=== PATIENT | female | born 1950 | race Caucasian/White ===

== ENCOUNTER 2017-07-28 11:27 | Day surgery (SDC) | payer MEDICARE, MEDICAID ==
[~2017-07-28] VITALS: Ht 162.6 cm; Wt 100.0 kg
[~2017-07-28 11:27] MED LIST: ATOR40TA PO; BECL8.7A7 INH; CHOL10002 PO; CITA20TA11 PO; GABA-341 PO; HUM7525 SQ; INSU100I29 SQ; LIRA0.6P SQ; LISI-600 PO; PHEN-716 PO
[2017-07-28 12:07] VITALS: BP 125/80
[2017-07-28] MEDS ORDERED: MIDAZolam 5mg/ml 2ml vial ONE (12:24)
[2017-07-28] MEDS ORDERED: fentaNYL/PF 50MCG/1 ML 2ML syringe ONE (12:24)
[2017-07-28] MEDS ORDERED: LEVO100T PO (12:40)
[2017-07-28] MEDS ORDERED: PANT40SU2 PO (12:41)
[2017-07-28] MEDS ORDERED: ROSI2TAB (12:42)
[2017-07-28] MEDS ORDERED: NITR50CA PO (12:44)
[2017-07-28] MEDS ORDERED: LIDOcaine Viscous 15ml cup ONE (13:03)
[2017-07-28 13:38] VITALS: BP 135/80
[2017-07-28 13:48] VITALS: BP 129/63
[2017-07-28 13:58] VITALS: BP 130/68
[2017-07-28 14:08] VITALS: BP 129/68
== END 2017-07-28 14:20 | disposition home or self-care (01) ==
LOC: GI LAB 11:27
PROVIDERS: ATTEND Internal Medicine Gastroenterology
DX: K92.1 Melena (principal); R12 Heartburn; K21.9 Gastro-esophageal reflux disease without esophagitis; Z79.899 Other long term (current) drug therapy; Z90.710 Acquired absence of both cervix and uterus; I10 Essential (primary) hypertension; E11.9 Type 2 diabetes mellitus without complications; Z79.4 Long term (current) use of insulin; Z88.8 Allergy status to other drugs, medicaments and biological substances; Z98.890 Other specified postprocedural states; E78.00 Pure hypercholesterolemia, unspecified
CPT/HCPCS: 43235; 45378; 82948; J2250; J3010; J7030; A4620; G0500

== ENCOUNTER 2017-08-13 17:50 | Emergency (ER) | payer MEDICARE, MEDICAID ==
[~2017-08-13] VITALS: Ht 162.6 cm; Wt 96.5 kg
[~2017-08-13 17:50] MED LIST changes: -HUM7525 SQ; +LEVO100T PO; +NITR50CA PO; +PANT40SU2 PO; -PHEN-716 PO; +ROSI2TAB
[2017-08-13 18:06] VITALS: BP 156/88
[2017-08-13 19:10] LABS: COLOR,URINE YELLOW (Yellow); GLUCOSE, URINE >=1000 mg/dl (Neg); KETONES,URINE NEGATIVE (Neg); LEUKOCYTE ESTERASE ,URINE NEGATIVE (Neg); NITRITES, URINE NEGATIVE (Neg); OCCULT BLOOD,URINE NEGATIVE (Neg); PH,URINE 5.5 (4.8-8.0); PROTEIN,URINE NEGATIVE (Neg); UROBILINOGEN,URINE 0.2 E.U/dL (0.2-1.0)
[2017-08-13 19:13] LABS: CLARITY,URINE TURBID (Clear); UA COLLECTION TYPE CLN CATCH MIDSTREAM
[2017-08-13 19:14] LABS: BASOPHILS % (AUTO) 0.3 % (0-1); EOSINOPHILS # (AUTO) 0.5 X10'3 (0-0.9); EOSINOPHILS % (AUTO) 3.9 % (0-6); HEMATOCRIT 46.7 % (35.0-45.0); HEMOGLOBIN 16.1 g/dl (12.0-16.0); LYMPHOCYTES # (AUTO) 2.7 X10'3 (1.1-4.8); LYMPHOCYTES % (AUTO) 21.4 % (21-51); MEAN CORPUSCULAR HGB CONC 34.4 % (33.0-36.5); MEAN CORPUSCULAR VOLUME 87.4 FL (78-98); MEAN PLATELET VOLUME 6.6 FL (7.4-10.4); MONOCYTES # (AUTO) 0.6 X10'3 (0-0.9); NEUTROPHILS # (AUTO) 8.7 X10'3 (1.8-7.7); NEUTROPHILS % (AUTO) 69.4 % (42-75); PLATELET COUNT 324 X10'3 (140-440); RED BLOOD COUNT 5.35 X10'6 (4.20-5.60); RED CELL DISTRIBUTION WIDTH 13.1 % (11.5-14.5); WHITE BLOOD COUNT 12.5 X10'3 (4.5-11.0)
[2017-08-13 19:22] LABS: BACTERIA,URINE 4+ /HPF (Neg); RBC,URINE NONE SEEN /HPF (0-2); SQUAMOUS EPITHELIAL CELL,UR NONE SEEN /LPF (FEW); WBC,URINE 0-4 /HPF (0-4); YEAST FEW /HPF (NEGATIVE)
[2017-08-13 19:24] LABS: INR 1.1 INR; PARTIAL THROMBOPLASTIN TIME 24 SECONDS (22-32); PROTHROMBIN TIME 11.3 SECONDS (9.0-12.0)
[2017-08-13 19:27] LABS: ALANINE AMINOTRANSFERASE 41 U/L (12-78); ALKALINE PHOSPHATASE 120 IU/L (46-116); ANION GAP 13 (8-16); ASPARTATE AMINO TRANSFERASE 25 U/L (10-37); BILIRUBIN,TOTAL 0.5 MG/DL (0.1-1.0); BLOOD UREA NITROGEN 23 MG/DL (7-18); BUN/CREATININE RATIO 16.8 (6.6-38.0); C-REACTIVE PROTEIN 0.52 MG/DL (0.0-0.5); CALCIUM 9.5 MG/DL (8.5-10.1); CHLORIDE 99 MMOL/L (99-107); CREATININE 1.37 MG/DL (0.40-0.90); GLUCOSE 305 MG/DL (70-104); POTASSIUM 4.2 MMOL/L (3.5-5.1); SODIUM 137 MMOL/L (135-145); TOTAL CARBON DIOXIDE 25.1 MMOL/L (24-32); eGFR 38 ML/MIN
== END 2017-08-13 19:59 | disposition home or self-care (01) ==
LOC: ER 17:51
DX: I77.6 Arteritis, unspecified (principal); I10 Essential (primary) hypertension; E11.9 Type 2 diabetes mellitus without complications; E78.00 Pure hypercholesterolemia, unspecified; Z88.5 Allergy status to narcotic agent; Z88.8 Allergy status to other drugs, medicaments and biological substances
CPT/HCPCS: 36415; 80053; 81001; 85025; 85610; 85651; 85730; 86140; 87077; 87088; 87186; 99284

== ENCOUNTER 2017-09-18 05:33 | Day surgery (SDC) | payer MEDICARE, MEDICAID ==
[2017-09-16 13:33] LABS: BASOPHILS % (AUTO) 0.5 % (0-1); EOSINOPHILS # (AUTO) 0.4 X10'3 (0-0.9); EOSINOPHILS % (AUTO) 4.3 % (0-6); LYMPHOCYTES # (AUTO) 2.3 X10'3 (1.1-4.8); LYMPHOCYTES % (AUTO) 24.1 % (21-51); MEAN CORPUSCULAR HEMOGLOBIN 30.1 PG (27.0-31.0); MEAN CORPUSCULAR HGB CONC 34.5 % (33.0-36.5); MEAN CORPUSCULAR VOLUME 87.3 FL (78-98); MEAN PLATELET VOLUME 6.5 FL (7.4-10.4); MONOCYTES # (AUTO) 0.6 X10'3 (0-0.9); MONOCYTES % (AUTO) 5.8 % (2-12); NEUTROPHILS # (AUTO) 6.3 X10'3 (1.8-7.7); NEUTROPHILS % (AUTO) 65.3 % (42-75); PRE OP HEMATOCRIT 44.1 % (35.0-45.0); PRE OP HEMOGLOBIN 15.2 g/dL (12.0-16.0); PRE OP PLATELET COUNT 344 X10'3 (140-440); RED BLOOD COUNT 5.05 X10'6 (4.20-5.60); RED CELL DISTRIBUTION WIDTH 13.1 % (11.5-14.5)
[2017-09-16 13:46] LABS: ALBUMIN/GLOBULIN RATIO 1.1 (1.1-1.5); ALKALINE PHOSPHATASE 92 IU/L (46-116); BLOOD UREA NITROGEN 20 MG/DL (7-18); BUN/CREATININE RATIO 16.8 (6.6-38.0); CALCIUM 9.3 MG/DL (8.5-10.1); CHLORIDE 106 MMOL/L (99-107); CREATININE 1.19 MG/DL (0.40-0.90); PRE OP ALT 28 U/L (30-65); PRE OP ANION GAP 11 (8-16); PRE OP AST 21 U/L (10-37); PRE OP BILIRUB, TOTAL 0.5 MG/DL (0.0-1.0); PRE OP GLUCOSE 105 MG/DL (70-104); PRE OP POTASSIUM 4.2 MMOL/L (3.4-5.1); PRE OP SODIUM 141 MMOL/L (135-145); TOTAL CARBON DIOXIDE 24.1 MMOL/L (24-32); TOTAL PROTEIN 7.5 G/DL (6.4-8.2); eGFR 45 ML/MIN
[2017-09-18] VITALS (7 sets, daily range): BP systolic 132–150; BP diastolic 59–75
[~2017-09-18] VITALS: Ht 161.9 cm; Wt 99.2 kg
[~2017-09-18 05:33] MED LIST changes: +ALBU8.5H8 INH; -ATOR40TA PO; -BECL8.7A7 INH; -GABA-341 PO; +INSU100C4 SQ; +INSU100I29; -INSU100I29 SQ; -LISI-600 PO; +LISI10TA4 PO; -NITR50CA PO; +PANT20TA3 PO; -PANT40SU2 PO; -ROSI2TAB; +ceFAZolin inj. 2,000 MG in normal saline 100ml IV soln 100 ML IV ONE; +famotidine 20mg tablet PO ONE; +ringers solution, lacted 1,000 ML IV SCH
[2017-09-18] MEDS ORDERED: ATOR40TA PO (06:20)
[2017-09-18] MEDS ORDERED: LIDOcaine 1% (10mg/ml) 2ml vial ONE (06:38)
[2017-09-18] MEDS ORDERED: BUPIVAcaine/PF 2.5 mg/ml (0.25%) 30ml vial ONE (07:09)
[2017-09-18] MEDS ORDERED: LIDOcaine 0.5% (5mg/ml) 50ml vial ONE (07:24)
[2017-09-18] MEDS ORDERED: fentaNYL/PF 50MCG/1 ML 2ML syringe ONE (07:32)
[2017-09-18] MEDS ORDERED: MIDAZolam 5mg/5ml vial ONE (07:32)
[2017-09-18] MEDS ORDERED: LIDOcaine 2% (20mg/ml) 5ml vial ONE (07:34)
[2017-09-18] MEDS ORDERED: propofol inj 20 ML IV ONE (07:34)
[2017-09-18] MEDS ORDERED: ringers solution, lacted 1,000 ML IV SCH (07:41)
[2017-09-18] MEDS ORDERED: labetalol 5mg/ml 20ml inj. IV PRN (07:45)
[2017-09-18] MEDS ORDERED: ondansetron/PF 4mg/2ml inj IV PRN (07:45)
[2017-09-18] MEDS ORDERED: morphine 4 MG/ML inj SYRINge IV PRN ×2 (07:45)
[2017-09-18] MEDS ORDERED: fentaNYL/PF 50MCG/1 ML 2ML syringe IV PRN ×2 (07:45)
== END 2017-09-18 09:20 | disposition home or self-care (01) ==
LOC: PAS 05:33
PROVIDERS: ATTEND Orthopaedic Surgery Hand Surgery
DX: G56.02 Carpal tunnel syndrome, left upper limb (principal); I10 Essential (primary) hypertension; K21.9 Gastro-esophageal reflux disease without esophagitis; E03.9 Hypothyroidism, unspecified; F41.9 Anxiety disorder, unspecified; E78.5 Hyperlipidemia, unspecified; G89.29 Other chronic pain; E11.42 Type 2 diabetes mellitus with diabetic polyneuropathy; Z88.8 Allergy status to other drugs, medicaments and biological substances; Z90.710 Acquired absence of both cervix and uterus; Z85.528 Personal history of other malignant neoplasm of kidney; Z88.3 Allergy status to other anti-infective agents; Z88.5 Allergy status to narcotic agent; Z90.5 Acquired absence of kidney; Z79.4 Long term (current) use of insulin; Z98.890 Other specified postprocedural states; Z79.899 Other long term (current) drug therapy
CPT/HCPCS: 36415; 64721; 80053; 82948; 85025; 93005; A6222; A6449; J0690; J2001; J2250; J2704; J3010; J3490; J7030; J7120

== ENCOUNTER 2022-01-03 03:25 | Emergency (ER) | payer MEDICARE, MEDICAID ==
[~2022-01-03] VITALS: Ht 162.6 cm; Wt 92.3 kg
[~2022-01-03 03:25] MED LIST changes: +ALBU8.5H17 INH; -ALBU8.5H8 INH; +ATOR40TA PO; -CITA20TA11 PO; +CITA20TA28 PO; +CLIN-97 PO; +LISI10TA27 PO; -LISI10TA4 PO; +PANT20TA18 PO; -PANT20TA3 PO; -ceFAZolin inj. 2,000 MG in normal saline 100ml IV soln 100 ML IV ONE; -famotidine 20mg tablet PO ONE; -ringers solution, lacted 1,000 ML IV SCH
[2022-01-03 08:22] VITALS: BP 138/76
[2022-01-03] MEDS ORDERED: KEN0.1O TP (08:42)
== END 2022-01-03 08:53 | disposition home or self-care (01) ==
LOC: ER 03:26
DX: R21 Rash and other nonspecific skin eruption (principal); L29.9 Pruritus, unspecified; I10 Essential (primary) hypertension; E78.00 Pure hypercholesterolemia, unspecified; E11.9 Type 2 diabetes mellitus without complications; G89.29 Other chronic pain; M54.9 Dorsalgia, unspecified; Z88.5 Allergy status to narcotic agent; Z79.899 Other long term (current) drug therapy; Z79.84 Long term (current) use of oral hypoglycemic drugs
CPT/HCPCS: 99283

== ENCOUNTER 2022-03-11 08:09 | Emergency (ER) | payer MEDICARE, MEDICAID ==
[~2022-03-11] VITALS: Ht 161.9 cm; Wt 92.3 kg
[2022-03-11 08:13] VITALS: BP 172/87
[2022-03-11] MEDS ORDERED: GUAI400T92 PO (09:55)
[2022-03-11] MEDS ORDERED: AMOX-117 PO (09:55)
== END 2022-03-11 10:48 | disposition home or self-care (01) ==
LOC: ER 08:10
DX: J98.8 Other specified respiratory disorders (principal); R05.9 Cough, unspecified; E78.00 Pure hypercholesterolemia, unspecified; I10 Essential (primary) hypertension; E11.9 Type 2 diabetes mellitus without complications; Z90.710 Acquired absence of both cervix and uterus; Z88.5 Allergy status to narcotic agent; Z91.040 Latex allergy status; Z88.8 Allergy status to other drugs, medicaments and biological substances
CPT/HCPCS: 71045; 99283

== ENCOUNTER 2022-10-10 14:30 | Inpatient (IN) | payer MEDICARE, MEDICAID ==
[~2022-10-10] VITALS: Ht 162.6 cm; Wt 100.0 kg
[~2022-10-10 14:30] MED LIST changes: +GUAI400T92 PO; -INSU100I29; +INSU100I29 SQ
[2022-10-10 15:50] LABS: BASOPHILS # (AUTO) 0.1 X10'3 (0-0.2); BASOPHILS % (AUTO) 0.7 % (0-1); EOSINOPHILS # (AUTO) 0.2 X10'3 (0-0.9); EOSINOPHILS % (AUTO) 2.3 % (0-6); HEMATOCRIT 45.6 % (35.0-45.0); HEMOGLOBIN 15.4 g/dl (12.0-16.0); MEAN CORPUSCULAR HEMOGLOBIN 29.5 PG (27.0-31.0); MEAN CORPUSCULAR HGB CONC 33.8 g/dL (33.0-36.5); MEAN CORPUSCULAR VOLUME 87.3 FL (78-98); MEAN PLATELET VOLUME 6.3 FL (7.4-10.4); MONOCYTES # (AUTO) 0.5 X10'3 (0-0.9); MONOCYTES % (AUTO) 5.2 % (2-12); NEUTROPHILS # (AUTO) 7.7 X10'3 (1.8-7.7); NEUTROPHILS % (AUTO) 72.8 % (42-75); PLATELET COUNT 360 X10'3 (140-440); RED BLOOD COUNT 5.22 X10'6 (4.20-5.60); WHITE BLOOD COUNT 10.6 X10'3 (4.5-11.0)
[2022-10-10 16:05] LABS: APTT 25 SECONDS (22-32)
[2022-10-10 16:09] LABS: ALANINE AMINOTRANSFERASE 28 U/L (12-78); ALBUMIN/GLOBULIN RATIO 1.1 (1.1-1.5); ALKALINE PHOSPHATASE 104 IU/L (46-116); ANION GAP 4 (8-16); ASPARTATE AMINO TRANSFERASE 17 U/L (10-37); BILIRUBIN,TOTAL 0.4 MG/DL (0.1-1.0); BLOOD UREA NITROGEN 19 MG/DL (7-18); BUN/CREATININE RATIO 17.9 (10.0-20.0); CALCIUM 9.5 MG/DL (8.5-10.1); CHLORIDE 103 MMOL/L (99-107); CREATININE 1.06 MG/DL (0.40-0.90); GLUCOSE 119 MG/DL (70-104); POTASSIUM 4.2 MMOL/L (3.5-5.1); SODIUM 136 MMOL/L (135-145); TOTAL CARBON DIOXIDE 28.9 MMOL/L (24-32); TOTAL PROTEIN 7.8 G/DL (6.4-8.2); eGFR 51 ML/MIN
[2022-10-10] MEDS ORDERED: LISI40TA13 PO (17:02)
[2022-10-10] MEDS ORDERED: CITA20TA16 PO (17:02)
[2022-10-10] MEDS ORDERED: PANT40TA54 PO (17:02)
[2022-10-10] MEDS ORDERED: LEVO25TA7 PO (17:02)
[2022-10-10] MEDS ORDERED: INSU200I4 SQ ×2 (17:02→17:07)
[2022-10-10] MEDS ORDERED: SEMA1PEN3 SQ (17:03)
[2022-10-10 18:25] LABS: CLARITY,URINE CLOUDY (Clear); COLOR,URINE YELLOW (Yellow); GLUCOSE, URINE NEGATIVE (Neg); KETONES,URINE NEGATIVE (Neg); LEUKOCYTE ESTERASE ,URINE NEGATIVE (Neg); NITRITES, URINE NEGATIVE (Neg); OCCULT BLOOD,URINE NEGATIVE (Neg); PROTEIN,URINE NEGATIVE (Neg); UROBILINOGEN,URINE 0.2 E.U/dL (0.2-1.0)
[2022-10-10 18:35] LABS: UA COLLECTION TYPE CLN CATCH MIDSTREAM
[2022-10-10 18:40] LABS: BACTERIA,URINE 4+ /HPF (Neg); RBC,URINE 0-2 /HPF (0-2); SQUAMOUS EPITHELIAL CELL,UR FEW /LPF (FEW)
[2022-10-10] MEDS ORDERED: magnesium Cl slow-release 64mg tablet PO PRN (19:10)
[2022-10-10] MEDS: normal saline 1000ml 1,000 ML IV SCH (19:10)
[2022-10-10] MEDS ORDERED: diphenhydrAMINE 25mg capsule PO PRN (19:10)
[2022-10-10] MEDS ORDERED: potassium Cl 20 mEq SR tablet PO PRN ×2 (19:10)
[2022-10-10] MEDS ORDERED: PERFLUTREN PROTEIN-A MICROSPHR (Optison) 0.22 MG/ML 3ML VIAL IV ONE (19:10)
[2022-10-10] MEDS ORDERED: glucagon, human recombinant 1mg kit SUBCUT PRN (19:10)
[2022-10-10] MEDS ORDERED: acetaminophen 650mg rectal suppository RC PRN (19:10)
[2022-10-10] MEDS ORDERED: bisacodyl 10mg suppository rectal RC PRN (19:10)
[2022-10-10] MEDS ORDERED: mag hydrox/Alum hydrox/simeth 30ml oral suspension PO PRN (19:10)
[2022-10-10] MEDS ORDERED: dextrose 50%-water 50ml dispensing syringe IV PRN ×2 (19:10)
[2022-10-10] MEDS ORDERED: magnesium 4gm in 100ml NS 100 ML IV PRN (19:10)
[2022-10-10] MEDS ORDERED: potassium Cl 40MEQ/1/2NS 520ml 520 ML IV PRN (19:10)
[2022-10-10] MEDS ORDERED: DEXTROSE 15 GM of carb/4 tabs (each vial/BOTTLE has 4 tablets) PO PRN ×2 (19:10)
[2022-10-10] MEDS ORDERED: acetaminophen 325mg tablet PO PRN ×2 (19:10)
[2022-10-10] MEDS ORDERED: MESSAGE TO PHARMACY PO ONE (19:10)
[2022-10-10] MEDS ORDERED: magnesium 2GM in 50ml NS 50 ML IV PRN (19:10)
[2022-10-10] MEDS ORDERED: ondansetron/PF 4mg/2ml inj IV PRN (19:10)
[2022-10-10] MEDS ORDERED: magnesium hydroxide 30ml (MOM) UD suspension PO PRN (19:10)
[2022-10-10] MEDS ORDERED: insulin Lispro (HumaLOG) vial - multi-dose SQ SCH (19:10)
[2022-10-10] MEDS ORDERED: aspirin 325mg tablet PO ONE (19:35)
[2022-10-10] MEDS ORDERED: hydrALAZINE 20mg/ml inj. IV PRN (19:35)
[2022-10-10] MEDS ORDERED: albuterol 2.5 MG/3 ML nebule NEB PRN (19:35)
[2022-10-10 19:42] LABS: HEMOGLOBIN A1C 7.3 % (4.5-6.2)
[2022-10-10] MEDS: CefTRIAXone/D5W-Rocephin 1gm 50 ML IV SCH (19:46)
[2022-10-10] MEDS: K and/or MAG REPLACEMENT MC SCH (20:00)
--- NOTE | 2022-10-10 20:03 | NUR ---
Patient in room ED 9. I have received report from MISSY in ER and had the opportunity to ask questions and assume patient care.
[2022-10-10 20:50] VITALS: BP 178/78
[2022-10-10] MEDS ORDERED: atorvastatin 20mg tablet PO SCH (21:00)
[2022-10-10] MEDS ORDERED: insulin glargine (Lantus) pen - multi-dose SQ SCH (21:00)
[2022-10-10] MEDS: amLODIPine 5mg tablet PO SCH (21:28)
[2022-10-10] MEDS: heparin, porcine 5000 units/ml vial SQ SCH (21:28)
[2022-10-10] MEDS: levetiracetam 250mg tablet PO SCH (21:29)
[2022-10-10] MEDS: lactobacillus rhamnosus 10,000 MMU CELLS/CAPSULE PO SCH (21:29)
[2022-10-10] MEDS: docusate sod 100mg capsule PO SCH (21:29)
[2022-10-10] MEDS: metoprolol succinate 25mg (24-HOUR) SR. Tablet PO SCH (21:29)
[2022-10-10 22:00] VITALS: BP 156/71
[2022-10-11 02:41] VITALS: BP 152/73
[2022-10-11 05:38] LABS: BASOPHILS # (AUTO) 0.1 X10'3 (0-0.2); BASOPHILS % (AUTO) 0.6 % (0-1); EOSINOPHILS # (AUTO) 0.3 X10'3 (0-0.9); EOSINOPHILS % (AUTO) 3.4 % (0-6); HEMATOCRIT 43.7 % (35.0-45.0); HEMOGLOBIN 14.5 g/dl (12.0-16.0); LYMPHOCYTES # (AUTO) 2.6 X10'3 (1.1-4.8); LYMPHOCYTES % (AUTO) 27.6 % (21-51); MEAN CORPUSCULAR HEMOGLOBIN 29.1 PG (27.0-31.0); MEAN CORPUSCULAR HGB CONC 33.2 g/dL (33.0-36.5); MEAN CORPUSCULAR VOLUME 87.7 FL (78-98); MEAN PLATELET VOLUME 6.4 FL (7.4-10.4); MONOCYTES # (AUTO) 0.7 X10'3 (0-0.9); MONOCYTES % (AUTO) 6.9 % (2-12); NEUTROPHILS # (AUTO) 5.9 X10'3 (1.8-7.7); NEUTROPHILS % (AUTO) 61.5 % (42-75); PLATELET COUNT 330 X10'3 (140-440); RED BLOOD COUNT 4.98 X10'6 (4.20-5.60); WHITE BLOOD COUNT 9.5 X10'3 (4.5-11.0)
[2022-10-11 06:00] VITALS: BP 132/69
--- NOTE | 2022-10-11 06:09 | NUR ---
Problems reprioritized. Patient report given, questions answered & plan of care reviewed with RUBENS LEIJA.
[2022-10-11 06:18] LABS: ALANINE AMINOTRANSFERASE 22 U/L (12-78); ALBUMIN 3.4 G/DL (3.4-5.0); ALBUMIN/GLOBULIN RATIO 1.1 (1.1-1.5); ALKALINE PHOSPHATASE 91 IU/L (46-116); ANION GAP 8 (8-16); ASPARTATE AMINO TRANSFERASE 17 U/L (10-37); BILIRUBIN,TOTAL 0.4 MG/DL (0.1-1.0); BLOOD UREA NITROGEN 21 MG/DL (7-18); CALCIUM 9.3 MG/DL (8.5-10.1); CHLORIDE 104 MMOL/L (99-107); CHOL/HDL RATIO 3.7 (0.00-4.99); CHOLESTEROL 171 MG/DL (0-200); GLUCOSE 76 MG/DL (70-104); HDL CHOLESTEROL 46 MG/DL (35-60); LDL CHOLESTEROL 95 MG/DL (50-100); MAGNESIUM 2.2 MG/DL (1.5-2.4); PHOSPHORUS 3.9 MG/DL (2.3-4.5); POTASSIUM 3.8 MMOL/L (3.5-5.1); SODIUM 140 MMOL/L (135-145); TOTAL PROTEIN 6.4 G/DL (6.4-8.2); TRIGLYCERIDES 130 MG/DL (20-135); eGFR 54 ML/MIN
[2022-10-11] MEDS: CefTRIAXone/D5W-Rocephin 1gm 50 ML IV SCH (07:23)
[2022-10-11] MEDS: lactobacillus rhamnosus 10,000 MMU CELLS/CAPSULE PO SCH (07:24)
[2022-10-11] MEDS: metoprolol succinate 25mg (24-HOUR) SR. Tablet PO SCH (07:25)
[2022-10-11] MEDS: docusate sod 100mg capsule PO SCH (07:25)
[2022-10-11 07:26] VITALS: BP_SYST 132
[2022-10-11] MEDS: amLODIPine 5mg tablet PO SCH (07:26)
[2022-10-11] MEDS: levetiracetam 250mg tablet PO SCH (07:26)
[2022-10-11] MEDS: heparin, porcine 5000 units/ml vial SQ SCH (07:27)
[2022-10-11] MEDS ORDERED: cholecalciferol (vitamin D3) 1,000 unit (25mcg) tablet PO SCH (08:00)
[2022-10-11] MEDS: K and/or MAG REPLACEMENT MC SCH (08:00)
[2022-10-11] MEDS ORDERED: pantoprazole 40mg Tablet.DR PO SCH (08:00)
[2022-10-11] MEDS ORDERED: lisinopril 20mg tablet PO SCH (08:00)
[2022-10-11] MEDS ORDERED: citalopram 20mg tablet PO SCH (08:00)
[2022-10-11] MEDS ORDERED: aspirin 81mg, enteric-coated 1 TAB TABLET.DR PO SCH (08:00)
[2022-10-11] MEDS ORDERED: levoTHYROXINE 25mcg tablet PO SCH (08:00)
[2022-10-11] MEDS: normal saline 1000ml 1,000 ML IV SCH (08:30)
[2022-10-11] MEDS ORDERED: GADOTERATE MEGLUMINE 7.5 MMOL/15 ML VIAL IV ONE (11:26)
--- NOTE | 2022-10-11 12:08 | NUR ---
DM consult: Per EMR pt with T2DM, well controlled with A1c 7.3%. Written DM education with RD contact information placed in patient's chart. Will remain available. Addendum: 10/11/22 at [address] Amended: Links added.
--- NOTE | 2022-10-11 14:48 | NUR ---
[facility] from [place] called and said pt's EEG is normal but unable to document in EMR until tomorrow. Dr. wasserman paged with results.
[2022-10-11] MEDS ORDERED: CIPR250T4 PO (15:09)
--- NOTE | 2022-10-11 15:59 | NUR ---
patient discharged in stable condition to home with daughter. iv removed tip intact no complications. belongings sent with pt. pt educated on discharge instructions/follow up
== END 2022-10-11 15:55 | disposition home or self-care (01) | DRG 69 ==
LOC: ER 14:30 → ED HOLD 19:16 → ORTHO 4S 20:56
PROVIDERS: ADMIT Family Medicine; ATTEND Family Medicine
PROC: 4A10X4Z Monitoring of Central Nervous Electrical Activity, External Approach (ICD-10-PCS; principal; 2022-10-11)
DX: G45.9 Transient cerebral ischemic attack, unspecified (principal); I16.1 Hypertensive emergency; N39.0 Urinary tract infection, site not specified; D32.9 Benign neoplasm of meninges, unspecified; I10 Essential (primary) hypertension; E78.00 Pure hypercholesterolemia, unspecified; F41.9 Anxiety disorder, unspecified; B96.20 Unspecified Escherichia coli [E. coli] as the cause of diseases classified elsewhere; E66.01 Morbid (severe) obesity due to excess calories; Z68.37 Body mass index [BMI] 37.0-37.9, adult; E11.9 Type 2 diabetes mellitus without complications; E03.9 Hypothyroidism, unspecified; G40.909 Epilepsy, unspecified, not intractable, without status epilepticus; J45.20 Mild intermittent asthma, uncomplicated; Z88.5 Allergy status to narcotic agent; Z88.8 Allergy status to other drugs, medicaments and biological substances; N28.9 Disorder of kidney and ureter, unspecified
CPT/HCPCS: 36415; 70450; 70544; 70547; 70553; 71045; 80053; 80061; 81001; 82948; 83036; 83735; 84100; 84443; 85025; 85610; 85651; 85730; 87077; 87081; 87088; 87186; 93005; 93306; 93880; 95816; 97116; 97161; 97530; 99285; A9575; G0378; J0696; J1644; J1815; J7030

== ENCOUNTER 2023-06-12 05:33 | Inpatient (IN) | payer OTHER, MEDICAID ==
[~2023-06-12] VITALS: Ht 162.6 cm; Wt 95.0 kg
[~2023-06-12 05:33] MED LIST changes: +CITA20TA16 PO; -CITA20TA28 PO; -CLIN-97 PO; -GUAI400T92 PO; -INSU100C4 SQ; -INSU100I29 SQ; +INSU200I4 SQ; -LEVO100T PO; +LEVO25TA7 PO; -LIRA0.6P SQ; -LISI10TA27 PO; +LISI40TA13 PO; -PANT20TA18 PO; +PANT40TA54 PO; +SEMA1PEN3 SQ
[2023-06-12 10:06] LABS: BASOPHILS # (AUTO) 0.1 X10'3 (0-0.2); BASOPHILS % (AUTO) 0.8 % (0-1); EOSINOPHILS # (AUTO) 0.2 X10'3 (0-0.9); HEMATOCRIT 47.4 % (35.0-45.0); HEMOGLOBIN 15.7 g/dl (12.0-16.0); LYMPHOCYTES # (AUTO) 1.9 X10'3 (1.1-4.8); LYMPHOCYTES % (AUTO) 24.2 % (21-51); MEAN CORPUSCULAR HGB CONC 33.1 g/dL (33.0-36.5); MEAN CORPUSCULAR VOLUME 87.6 FL (78-98); MEAN PLATELET VOLUME 6.6 FL (7.4-10.4); MONOCYTES # (AUTO) 0.9 X10'3 (0-0.9); MONOCYTES % (AUTO) 11.2 % (2-12); NEUTROPHILS # (AUTO) 4.8 X10'3 (1.8-7.7); NEUTROPHILS % (AUTO) 60.8 % (42-75); PLATELET COUNT 283 X10'3 (140-440); RED BLOOD COUNT 5.41 X10'6 (4.20-5.60); RED CELL DISTRIBUTION WIDTH 14.4 % (11.5-14.5); WHITE BLOOD COUNT 7.9 X10'3 (4.5-11.0)
[2023-06-12 10:25] LABS: BILIRUBIN,URINE NEGATIVE (Neg); CLARITY,URINE CLOUDY (Clear); COLOR,URINE YELLOW (Yellow); GLUCOSE, URINE >=1000 mg/dl (Neg); KETONES,URINE NEGATIVE (Neg); LEUKOCYTE ESTERASE ,URINE NEGATIVE (Neg); NITRITES, URINE POSITIVE (Neg); OCCULT BLOOD,URINE NEGATIVE (Neg); PH,URINE 5.5 (4.8-8.0); PROTEIN,URINE NEGATIVE (Neg); UROBILINOGEN,URINE 0.2 E.U/dL (0.2-1.0)
[2023-06-12] MEDS ORDERED: ipratropium/albuterol 3ml nebule NEB ONE (10:30)
[2023-06-12 10:38] VITALS: PULSE 88; RESP 18; O2SAT 93
[2023-06-12 10:38] LABS: ALANINE AMINOTRANSFERASE 31 U/L (12-78); ALBUMIN 3.8 G/DL (3.4-5.0); ALKALINE PHOSPHATASE 93 IU/L (46-116); ANION GAP 10 (8-16); ASPARTATE AMINO TRANSFERASE 22 U/L (10-37); BILIRUBIN,TOTAL 0.5 MG/DL (0.1-1.0); BLOOD UREA NITROGEN 32 MG/DL (7-18); BUN/CREATININE RATIO 26.2 (10.0-20.0); CALCIUM 9.1 MG/DL (8.5-10.1); CHLORIDE 102 MMOL/L (99-107); CREATININE 1.22 MG/DL (0.40-0.90); GLUCOSE 141 MG/DL (70-104); MAGNESIUM 2.2 MG/DL (1.5-2.4); POTASSIUM 4.3 MMOL/L (3.5-5.1); PRO BRAIN NATRIURETIC PEPTIDE 106 PG/ML (0-125); SODIUM 138 MMOL/L (135-145); TOTAL CARBON DIOXIDE 25.9 MMOL/L (24-32); TOTAL PROTEIN 7.8 G/DL (6.4-8.2); eCRCL 35 ML/MIN; eGFR 43 ML/MIN
[2023-06-12 10:39] LABS: UA COLLECTION TYPE CLN CATCH MIDSTREAM
[2023-06-12 10:42] LABS: BACTERIA,URINE 4+ /HPF (Neg); WBC CLUMPS,URINE FEW /HPF (NEGATIVE)
[2023-06-12 10:43] LABS: RBC,URINE 0-2 /HPF (0-2); SQUAMOUS EPITHELIAL CELL,UR MANY /LPF (FEW)
[2023-06-12 10:44] VITALS: PULSE 92; RESP 18; O2SAT 94
[2023-06-12] MEDS ORDERED: CefTRIAXone 2gm/D5W 50ml BAG 50 ML IV ONE (13:30)
[2023-06-12] MEDS ORDERED: acetaminophen 325mg tablet PO PRN ×2 (14:25)
[2023-06-12] MEDS ORDERED: potassium Cl 40MEQ/1/2NS 520ml 520 ML IV PRN (14:25)
[2023-06-12] MEDS ORDERED: magnesium hydroxide 30ml (MOM) UD suspension PO PRN (14:25)
[2023-06-12] MEDS ORDERED: mag hydrox/Alum hydrox/simeth 30ml oral suspension PO PRN (14:25)
[2023-06-12] MEDS ORDERED: magnesium Cl slow-release 64mg tablet PO PRN (14:25)
[2023-06-12] MEDS ORDERED: magnesium 2GM in 50ml NS 50 ML IV PRN (14:25)
[2023-06-12] MEDS ORDERED: ondansetron/PF 4mg/2ml inj IV PRN (14:25)
[2023-06-12] MEDS ORDERED: potassium Cl 20 mEq SR tablet PO PRN ×2 (14:25)
[2023-06-12] MEDS ORDERED: magnesium 4gm in 100ml NS 100 ML IV PRN (14:25)
[2023-06-12] MEDS: guaiFENesin ER 600mg tablet PO SCH ×2 (15:11→20:01)
[2023-06-12] MEDS: normal saline 1000ml 1,000 ML IV SCH (15:11)
[2023-06-12] MEDS: azithromycin/NS 500mg/250ml 250 ML IV SCH (15:12)
[2023-06-12] MEDS ORDERED: DEXTROSE 15 GM of carb/4 tabs (each vial/BOTTLE has 4 tablets) PO PRN ×2 (15:25)
[2023-06-12] MEDS ORDERED: dextrose 50%-water 50ml dispensing syringe IV PRN ×2 (15:25)
[2023-06-12] MEDS ORDERED: glucagon, human recombinant 1mg kit SUBCUT PRN (15:25)
[2023-06-12] MEDS ORDERED: insulin Lispro (HumaLOG) vial - multi-dose SQ SCH (15:25)
[2023-06-12] MEDS ORDERED: MESSAGE TO PHARMACY PO ONE (15:25)
[2023-06-12 17:23] VITALS: PULSE 74; RESP 16; O2SAT 95
[2023-06-12] MEDS: budesonide 0.5mg/2ml UD nebule IH SCH (19:24)
[2023-06-12 19:25] VITALS: PULSE 76; RESP 16; O2SAT 97
[2023-06-12 19:32] VITALS: PULSE 83; RESP 16
[2023-06-12] MEDS: docusate sod 100mg capsule PO SCH (19:50)
[2023-06-12] MEDS: K and/or MAG REPLACEMENT MC SCH (19:51)
[2023-06-12] MEDS ORDERED: insulin glargine (Lantus) pen - multi-dose SQ SCH (21:00)
[2023-06-13 01:00] VITALS: BP 132/68; PULSE 76; RESP 14; TEMP 98.3; O2SAT 97
[2023-06-13] MEDS: normal saline 1000ml 1,000 ML IV SCH (02:19)
[2023-06-13 06:00] VITALS: BP 127/52; PULSE 74; RESP 14; TEMP 97.7; O2SAT 95
[2023-06-13] MEDS ORDERED: levoTHYROXINE 25mcg tablet PO SCH (07:00)
[2023-06-13] MEDS: azithromycin/NS 500mg/250ml 250 ML IV SCH (07:30)
[2023-06-13] MEDS: docusate sod 100mg capsule PO SCH (07:30)
[2023-06-13] MEDS: guaiFENesin ER 600mg tablet PO SCH (07:31)
[2023-06-13 07:43] LABS: BASOPHILS % (AUTO) 0.8 % (0-1); EOSINOPHILS # (AUTO) 0.2 X10'3 (0-0.9); EOSINOPHILS % (AUTO) 3.9 % (0-6); HEMOGLOBIN 13.9 g/dl (12.0-16.0); LYMPHOCYTES # (AUTO) 2.1 X10'3 (1.1-4.8); LYMPHOCYTES % (AUTO) 37.7 % (21-51); MEAN CORPUSCULAR HEMOGLOBIN 28.9 PG (27.0-31.0); MEAN CORPUSCULAR HGB CONC 33.1 g/dL (33.0-36.5); MEAN CORPUSCULAR VOLUME 87.2 FL (78-98); MEAN PLATELET VOLUME 6.4 FL (7.4-10.4); MONOCYTES # (AUTO) 0.7 X10'3 (0-0.9); MONOCYTES % (AUTO) 12.7 % (2-12); NEUTROPHILS # (AUTO) 2.5 X10'3 (1.8-7.7); NEUTROPHILS % (AUTO) 44.9 % (42-75); PLATELET COUNT 254 X10'3 (140-440); RED BLOOD COUNT 4.81 X10'6 (4.20-5.60); RED CELL DISTRIBUTION WIDTH 13.6 % (11.5-14.5); WHITE BLOOD COUNT 5.5 X10'3 (4.5-11.0)
[2023-06-13 07:54] LABS: APTT 25 SECONDS (22-32); INR 1.1 INR; PROTHROMBIN TIME 11.4 SECONDS (9.0-12.0)
[2023-06-13 07:58] LABS: ALANINE AMINOTRANSFERASE 26 U/L (12-78); ALBUMIN 3.1 G/DL (3.4-5.0); ALBUMIN/GLOBULIN RATIO 0.9 (1.1-1.5); ALKALINE PHOSPHATASE 78 IU/L (46-116); ANION GAP 8 (8-16); ASPARTATE AMINO TRANSFERASE 23 U/L (10-37); BILIRUBIN,TOTAL 0.3 MG/DL (0.1-1.0); BLOOD UREA NITROGEN 27 MG/DL (7-18); BUN/CREATININE RATIO 28.1 (10.0-20.0); CALCIUM 8.5 MG/DL (8.5-10.1); CHLORIDE 106 MMOL/L (99-107); CHOL/HDL RATIO 3.2 (0.00-4.99); CHOLESTEROL 144 MG/DL (0-200); CREATININE 0.96 MG/DL (0.40-0.90); GLUCOSE 134 MG/DL (70-104); HDL CHOLESTEROL 45 MG/DL (35-60); LDL CHOLESTEROL 77 MG/DL (50-100); MAGNESIUM 2.2 MG/DL (1.5-2.4); PHOSPHORUS 3.5 MG/DL (2.3-4.5); POTASSIUM 4.3 MMOL/L (3.5-5.1); SODIUM 139 MMOL/L (135-145); TOTAL PROTEIN 6.5 G/DL (6.4-8.2); TRIGLYCERIDES 97 MG/DL (20-135); eCRCL 44 ML/MIN; eGFR 57 ML/MIN
[2023-06-13] MEDS: budesonide 0.5mg/2ml UD nebule IH SCH (08:00)
[2023-06-13] MEDS ORDERED: atorvastatin 20mg tablet PO SCH (08:00)
[2023-06-13] MEDS ORDERED: enoxaparin 40mg/0.4ml syringe SUBCUT SCH (08:00)
[2023-06-13] MEDS ORDERED: CefTRIAXone 2gm/D5W 50ml BAG 50 ML IV SCH (08:00)
[2023-06-13] MEDS: K and/or MAG REPLACEMENT MC SCH (08:00)
[2023-06-13 08:07] LABS: HEMOGLOBIN A1C 9.4 % (4.5-6.2)
[2023-06-13 08:36] LABS: FREE T4 (FREE THYROXINE) 0.79 NG/DL (0.73-1.40); THYROID STIMULATING HORMONE 3.07 ulU/ml (0.34-4.50)
[2023-06-13] MEDS ORDERED: SULF1TAB49 PO (09:25)
[2023-06-13 09:27] VITALS: PULSE 78; RESP 16; O2SAT 98
[2023-06-13 09:36] VITALS: PULSE 88; RESP 16
[2023-06-13 11:00] VITALS: BP 138/40; PULSE 80; RESP 11; TEMP 97.9; O2SAT 95
== END 2023-06-13 13:47 | disposition home or self-care (01) | DRG 177 ==
LOC: ER 05:33 → ED HOLD 14:26 → PCU 3S 06-13 00:36
PROVIDERS: ADMIT Internal Medicine; ATTEND Internal Medicine
DX: U07.1 COVID-19 (principal); J12.82 Pneumonia due to coronavirus disease 2019; N17.9 Acute kidney failure, unspecified; N30.00 Acute cystitis without hematuria; E03.9 Hypothyroidism, unspecified; I12.9 Hypertensive chronic kidney disease with stage 1 through stage 4 chronic kidney disease, or unspecified chronic kidney disease; E11.22 Type 2 diabetes mellitus with diabetic chronic kidney disease; N18.9 Chronic kidney disease, unspecified; E78.00 Pure hypercholesterolemia, unspecified; G89.29 Other chronic pain; Z87.440 Personal history of urinary (tract) infections; Z90.710 Acquired absence of both cervix and uterus; Z90.5 Acquired absence of kidney; Z88.5 Allergy status to narcotic agent; Z88.8 Allergy status to other drugs, medicaments and biological substances; Z91.048 Other nonmedicinal substance allergy status; Z79.899 Other long term (current) drug therapy; Z82.5 Family history of asthma and other chronic lower respiratory diseases; Z81.2 Family history of tobacco abuse and dependence
CPT/HCPCS: 36415; 71045; 80053; 80061; 81001; 82948; 83036; 83605; 83735; 83880; 84100; 84145; 84439; 84443; 84484; 85025; 85610; 85730; 87040; 87081; 87502; 87503; 87634; 87811; 93005; 93306; 94640; 94760; 99285; G0378; J0456; J0696; J1650; J1815; J7030